=== PATIENT | female | born 1950 | race Caucasian/White ===

== ENCOUNTER 2020-04-07 17:34 | Emergency (ER) | payer OTHER ==
[2020-04-07] MEDS ORDERED: MECLIZINE HCL 25 MG TABLET (FP) PO ONE (18:00)
[2020-04-07 18:25] LABS: BASO % 0.4 % (0-2.0); EOS % 0.8 % (0-4.5); HEMATOCRIT 44.4 % (32.4-45.2); HEMOGLOBIN 14.6 GM/dl (10.7-15.3); LYMPH % 20.4 % (8-40); MCH 29.5 pg (25.7-33.7); MEAN CELL VOLUME 89.4 fl (80-96); MONO % 5.2 % (3.8-10.2); NEUT % 73.2 % (42.8-82.8); PLATELET COUNT 280 K/MM3 (134-434); RBC 4.97 M/mm3 (3.60-5.2); RDW 13.8 % (11.6-15.6); WHITE BLOOD COUNT 7.9 K/mm3 (4.0-10.8)
[2020-04-07 18:38] LABS: ALBUMIN 4.4 g/dl (3.4-5.0); BILIRUBIN,TOTAL 0.5 mg/dl (0.2-1); CALCIUM 9.4 mg/dl (8.5-10); CREATININE 0.8 mg/dl (0.55-1.3); POTASSIUM 4.7 mmol/L (3.5-5.1); TOT PROT 7.6 g/dl (6.4-8.2)
[2020-04-07] MEDS ORDERED: MECLIZINE HCL 25 MG TABLET (FP) ONE (18:42)
[2020-04-07 19:11] VITALS: BP 160/102; PULSE 78; TEMP 98.8; BMI 31.8
== END 2020-04-07 19:12 | disposition home or self-care (01) ==
LOC: FER 17:34
DX: H81.13 Benign paroxysmal vertigo, bilateral (principal)
CPT/HCPCS: 36415; 80053; 85025; 93005; 99284-25